=== PATIENT | male | born 1960 | race Caucasian/White ===

== ENCOUNTER 2017-09-11 08:34 | Outpatient (RCR) | payer OTHER | END 2017-09-18 | LOC: M CR 08:34 → M PR 09-16 09:58 | DX: Z51.89 Encounter for other specified aftercare (principal); Z94.2 Lung transplant status | CPT/HCPCS: G0424 ==

== ENCOUNTER 2017-09-19 08:48 | Outpatient (RCR) | payer OTHER | END 2017-10-16 | LOC: M PR 08:48 | DX: Z51.89 Encounter for other specified aftercare (principal); Z94.2 Lung transplant status | CPT/HCPCS: G0424 ==

== ENCOUNTER 2017-10-21 10:54 | Outpatient (RCR) | payer OTHER | END 2017-11-16 | LOC: M PR 10:54 | DX: Z51.89 Encounter for other specified aftercare (principal); Z94.2 Lung transplant status | CPT/HCPCS: G0424 ==

== ENCOUNTER 2017-11-18 13:08 | Outpatient (RCR) | payer OTHER | END 2017-12-16 | LOC: M PR 13:08 | DX: Z51.89 Encounter for other specified aftercare (principal); Z94.2 Lung transplant status | CPT/HCPCS: G0424 ==

== ENCOUNTER 2017-12-18 09:44 | Outpatient (RCR) | payer OTHER | END 2018-01-16 | LOC: M PR 09:44 | DX: Z51.89 Encounter for other specified aftercare (principal); Z94.2 Lung transplant status | CPT/HCPCS: G0424 ==

== ENCOUNTER 2018-01-01 14:14 | Outpatient (RCR) | payer OTHER | END 2018-01-16 | LOC: M PR 14:14 | DX: Z51.89 Encounter for other specified aftercare (principal); Z94.2 Lung transplant status | CPT/HCPCS: 93797 ==

== ENCOUNTER 2018-02-17 13:10 | Outpatient (RCR) | payer OTHER | END 2018-03-18 | LOC: M PR 13:10 | DX: Z51.89 Encounter for other specified aftercare (principal); Z94.2 Lung transplant status | CPT/HCPCS: 93797 ==

== ENCOUNTER 2018-04-20 01:59 | Emergency (ER) | payer OTHER ==
[2018-04-20 02:32] LABS: HEMOGLOBIN 7.7 g/dl (13.5-17.5); MEAN CORPUSCULAR HEMOGLOBIN 33.9 pg (27.0-33.0); MEAN CORPUSCULAR HGB CONC 32.1 g/dl (32.0-36.5); MEAN CORPUSCULAR VOLUME 105.7 fl (80.0-96.0); PLATELET COUNT, AUTOMATED 176 10^3/uL (150-450); RED BLOOD COUNT 2.27 10^6/uL (4.30-6.10); RED CELL DISTRIBUTION WIDTH 13.2 % (11.5-14.5); WHITE BLOOD COUNT 13.4 10^3/uL (4.0-10.0)
[2018-04-20 02:37] LABS: ADD MANUAL DIFFER YES; DIFF SLIDE NUMBER 66; POSITIVE MORPH POS FLAG
[2018-04-20] MEDS: ONDANSETRON 4MG/2ML VIAL (J2405) IV (02:37)
[2018-04-20] MEDS: fentaNYL 100 MCG/2 ML INJECTION (J3010) IV ×3 (02:37→04:45)
[2018-04-20] MEDS: NS 1,000 ML IV ×2 (02:40→04:45)
[2018-04-20 02:56] LABS: ALBUMIN 3.3 GM/DL (3.2-5.2); ALBUMIN/GLOBULIN RATIO 1.06 (1.00-1.93); ALKALINE PHOSPHATASE 67 U/L (45-117); ALT/SGPT 28 U/L (12-78); ANION GAP 9 MEQ/L (8-16); AST/SGOT 25 U/L (7-37); BILIRUBIN,DIRECT < 0.1 MG/DL (0.0-0.2); BILIRUBIN,TOTAL 0.2 MG/DL (0.2-1.0); BLOOD UREA NITROGEN 41 MG/DL (7-18); CALCIUM LEVEL 8.2 MG/DL (8.5-10.1); CARBON DIOXIDE LEVEL 25 MEQ/L (21-32); CHLORIDE LEVEL 110 MEQ/L (98-107); CK-MB VALUE MASS < 1.0 NG/ML (<3.6); CPK CREATINE PHOSPHOKINASE 39 U/L (39-308); GLOMERULAR FILTRATION RATE 29.9 (>56); GLUCOSE, FASTING 120 MG/DL (70-100); LIPASE 73 U/L (73-393); MB/CK RELATIVE INDEX 2.56 (< OR =4); POTASSIUM SERUM 4.5 MEQ/L (3.5-5.1); SODIUM LEVEL 144 MEQ/L (136-145); TOTAL PROTEIN 6.4 GM/DL (6.4-8.2); TROPONIN I < 0.02 NG/ML (< 0.10)
[2018-04-20 03:03] LABS: BASOPHILS 1 % (0-4); LYMPHOCYTES 8 % (16-52); MONOCYTES 4 % (0-8); NEUTROPHILS 87 % (35-75); PLATELET ESTIMATE NORMAL (NORMAL)
[2018-04-20 03:04] LABS: TEAR DROP CELLS 1+
[2018-04-20 05:01] LABS: BASO % 0.1 % (0.0-1.0); EOS % 0.2 % (0.0-3.0); IMMATURE GRANULOCYTE % 1.2 % (0-3.0); LYMPH # 0.5 10^3/uL (1.5-4.5); MEAN CORPUSCULAR HEMOGLOBIN 33.9 pg (27.0-33.0); MEAN CORPUSCULAR VOLUME 105.8 fl (80.0-96.0); MONO # 1.5 10^3/uL (0.0-0.8); MONO % 11.7 % (0.0-5.0); NEUTROPHILS # 10.7 10^3/uL (1.8-7.7); NEUTROPHILS % 82.8 % (36.0-66.0); PLATELET COUNT, AUTOMATED 121 10^3/uL (150-450); RED BLOOD COUNT 1.89 10^6/uL (4.30-6.10); RED CELL DISTRIBUTION WIDTH 13.1 % (11.5-14.5); WHITE BLOOD COUNT 12.9 10^3/uL (4.0-10.0)
[2018-04-20 05:04] LABS: HEMOGLOBIN 6.4 g/dl (13.5-17.5); POSITIVE MORPH POS FLAG
[2018-04-20 05:31] LABS: IMMEDIATE SPIN CROSSMATCH 1 4
[2018-04-20] MEDS: PROTAMINE SULF INJ 50 MG/5 ML VIAL (J2720) IV (05:48)
[2018-04-20] MEDS ORDERED: MORPHINE 4 MG/ML 1ML VIAL/SYRINGE (J2270) As Ordered (06:11)
[2018-04-20] MEDS: MORPHINE 4 MG/ML 1ML VIAL/SYRINGE (J2270) IV (06:35)
[2018-04-20] MEDS: HYDROMORPHONE HCL 0.5 MG/ 0.5 ML SYRINGE (J1170 PER 1) IV ×2 (07:12→07:53)
[2018-04-20] MEDS: TACROLIMUS 0.5 MG CAP PO ×2 (07:54)
== END 2018-04-20 08:00 | disposition short-term general hospital (02) ==
LOC: M ED 01:59
DX: J94.2 Hemothorax (principal); J84.10 Pulmonary fibrosis, unspecified; I95.9 Hypotension, unspecified
CPT/HCPCS: J2270

== ENCOUNTER 2018-08-06 08:36 | Outpatient (RCR) | payer OTHER ==
[~2018-08-06 08:36] MED LIST: ALBU17IN2 INH; ALBU83IN INH; AZIT-12 PO; BACT800T5 PO; CULT10CA2 PO; FLON1SPR; FOLI1TAB5 PO; IMUR50TA7 PO; LASI20TA PO; LIPI10TA PO; LOPR1TAB6 PO; LOVE0.6I2 SC; MAGN400T5 PO; MULT1TAB18 PO; NORC1TAB4 PO; PANT40TA3 PO; PRED10TA2 PO; TACR0.5C3 PO; TACR1CAP3 PO; TRAM50TA2 PO; TUMS500C PO; VALC450T PO; VITA200028 PO; XANA0.5T PO; ZOFR4TAB16 PO; [UNRECOGNIZED DRUG - CODE] PO; mag ox
[2018-08-06] MEDS ORDERED: COUM1TAB17 PO (08:58)
[2018-08-06] MEDS ORDERED: COUM7.5T PO (08:58)
== END 2018-08-18 ==
LOC: M PR 08:36
PROVIDERS: ATTEND Internal Medicine Pulmonary Disease
DX: J84.112 Idiopathic pulmonary fibrosis (principal)

== ENCOUNTER 2018-09-15 10:31 | Outpatient (RCR) | payer OTHER ==
[~2018-09-15 10:31] MED LIST changes: +COUM1TAB17 PO; +COUM7.5T PO; +FOLI1TAB11 PO; -FOLI1TAB5 PO; -LASI20TA PO; +LASI20TA3 PO
== END 2018-09-18 ==
LOC: M PR 10:31
PROVIDERS: ATTEND Internal Medicine Pulmonary Disease
DX: J84.112 Idiopathic pulmonary fibrosis (principal)
CPT/HCPCS: G0424 ×9

== ENCOUNTER 2018-10-15 15:49 | Outpatient (RCR) | payer OTHER | END 2018-10-16 | LOC: M PR 15:49 | PROVIDERS: ATTEND Internal Medicine Pulmonary Disease | DX: J84.112 Idiopathic pulmonary fibrosis (principal) | CPT/HCPCS: G0424 ×6 ==

== ENCOUNTER 2018-11-12 10:35 | Outpatient (RCR) | payer OTHER | END 2018-11-16 | LOC: M PR 10:35 | PROVIDERS: ATTEND Internal Medicine Pulmonary Disease | DX: J84.112 Idiopathic pulmonary fibrosis (principal) | CPT/HCPCS: G0424 ×7 ==

== ENCOUNTER 2018-12-11 13:51 | Outpatient (RCR) | payer OTHER ==
[~2018-12-11 13:51] MED LIST changes: +IMUR50TA10 PO; -IMUR50TA7 PO; -NORC1TAB4 PO; +NORC1TAB7 PO
== END 2018-12-16 ==
LOC: M PR 13:51
PROVIDERS: ATTEND Internal Medicine Pulmonary Disease
DX: J84.10 Pulmonary fibrosis, unspecified (principal)
CPT/HCPCS: G0424 ×5

== ENCOUNTER 2019-01-05 12:59 | Outpatient (RCR) | payer OTHER | END 2019-01-16 | LOC: M PR 12:59 | PROVIDERS: ATTEND Internal Medicine Pulmonary Disease | DX: Z51.89 Encounter for other specified aftercare (principal) | CPT/HCPCS: G0424 ×2 ==

== ENCOUNTER 2019-02-09 13:32 | Outpatient (RCR) | payer OTHER | END 2019-02-15 | LOC: M PR 13:32 | PROVIDERS: ATTEND Internal Medicine Pulmonary Disease | DX: J84.112 Idiopathic pulmonary fibrosis (principal) | CPT/HCPCS: G0424 ×4 ==

== ENCOUNTER → 2019-03-18 | Outpatient (RCR) | payer OTHER | LOC: M PR 03-04 10:16 | PROVIDERS: ATTEND Internal Medicine Pulmonary Disease | DX: J84.10 Pulmonary fibrosis, unspecified (principal) | CPT/HCPCS: G0424 ×2 ==

== ENCOUNTER 2019-04-23 09:44 | Outpatient (RCR) | payer OTHER ==
[~2019-04-23 09:44] MED LIST changes: -ALBU17IN2 INH; +PROV108A INH
== END 2019-05-18 ==
LOC: M PR 09:44
PROVIDERS: ATTEND Internal Medicine Pulmonary Disease
DX: J84.10 Pulmonary fibrosis, unspecified (principal)

== ENCOUNTER 2019-08-23 08:40 | Emergency (ER) | payer OTHER ==
[~2019-08-23] VITALS: Ht 182.9 cm; Wt 79.5 kg
[2019-08-23] MEDS ORDERED: ACET1TAB55 PO (08:57)
[2019-08-23] MEDS ORDERED: SING10TA32 PO (08:57)
[2019-08-23] MEDS ORDERED: WARF-21 PO (08:57)
[2019-08-23] MEDS ORDERED: SUMA25TA3 PO (08:57)
[2019-08-23] MEDS ORDERED: METO5TAB2 PO (08:57)
[2019-08-23 09:56] LABS: BASO % 0.3 % (0.0-1.0); EOS % 0.3 % (0.0-3.0); HEMATOCRIT 34.7 % (42.0-52.0); HEMOGLOBIN 11.6 g/dl (13.5-17.5); LYMPH # 0.4 10^3/uL (1.5-5.0); LYMPH % 11.7 % (24.0-44.0); MEAN CORPUSCULAR HEMOGLOBIN 33.1 pg (27.0-33.0); MEAN CORPUSCULAR HGB CONC 33.4 g/dl (32.0-36.5); MEAN CORPUSCULAR VOLUME 99.1 fl (80.0-96.0); MONO # 0.5 10^3/uL (0.0-0.8); MONO % 14.5 % (0.0-5.0); NEUTROPHILS # 2.4 10^3/uL (1.5-8.5); NEUTROPHILS % 72.6 % (36.0-66.0); PLATELET COUNT, AUTOMATED 122 10^3/uL (150-450); WHITE BLOOD COUNT 3.3 10^3/uL (4.0-10.0)
[2019-08-23 10:08] LABS: INR 2.8; PARTIAL THROMBOPLASTIN TIME 29.9 SECONDS (25.0-38.4); PROTHROMBIN TIME 29.4 SECONDS (11.8-14.0)
[2019-08-23 10:17] LABS: ALBUMIN 4.3 GM/DL (3.2-5.2); BILIRUBIN,DIRECT 0.2 MG/DL (0.0-0.2); BILIRUBIN,TOTAL 0.7 MG/DL (0.2-1.0); TOTAL PROTEIN 6.8 GM/DL (6.4-8.2)
[2019-08-23 10:25] LABS: CALCIUM LEVEL 8.9 MG/DL (8.5-10.1); CREATININE FOR GFR 2.06 MG/DL (0.70-1.30); GLOMERULAR FILTRATION RATE 35.4 (>56); POTASSIUM SERUM 3.7 MEQ/L (3.5-5.1)
[2019-08-23] MEDS ORDERED: ACETAMINOPHEN TAB 650MG DOSE (2X325MG) PO ONE (13:00)
[2019-08-23] MEDS ORDERED: ONDANSETRON 4MG/2ML VIAL (J2405) IV ONE (13:15)
[2019-08-23] MEDS ORDERED: ALPRAZolam 0.25 MG TAB PO ONE (13:45)
--- NOTE | 2019-08-23 13:49 | REP ---
CT ABDOMEN AND PELVIS WITHOUT CONTRAST: HISTORY: Vomiting. No comparison CT study. 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 The lung bases show mild linear fibrosis in the right lung base. No pleural effusion is seen. The patient appears to be status post Alfredo fundoplication. No hiatal hernia is seen. No adrenal lesion is seen. The liver and the spleen are normal in size homogeneous in texture. No abnormalities noted in the pancreas or within the gallbladder. Kidneys are morphologically intact. No abdominal wall defect is seen. Small and large bowel loops are normal in caliber. The appendix is surgically absent. Seminal vesicles and prostate are unremarkable. Urinary bladder is intact. IMPRESSION: No acute intra-abdominal abnormality. Electronically Signed by Nomi Mendoza MD 08/23/2019 02:01 P
[2019-08-23 16:25] VITALS: BP 155/85
== END 2019-08-23 16:31 | disposition home or self-care (01) ==
LOC: M ED 08:40
DX: R11.2 Nausea with vomiting, unspecified (principal); J84.112 Idiopathic pulmonary fibrosis; Z79.01 Long term (current) use of anticoagulants; Z79.51 Long term (current) use of inhaled steroids; Z79.52 Long term (current) use of systemic steroids; Z79.899 Other long term (current) drug therapy
CPT/HCPCS: 36415; 74176; 80048; 80076; 80197; 81001; 82150; 83605; 83690; 85025; 85610; 85730; 87040; 93041; 96374; 99285; J2405

== ENCOUNTER 2019-09-17 11:08 | Outpatient (RCR) | payer OTHER ==
[~2019-09-17 11:08] MED LIST changes: +ACET1TAB55 PO; +METO5TAB2 PO; +SING10TA32 PO; +SUMA25TA3 PO; +WARF-21 PO
== END 2019-09-18 ==
LOC: M PR 11:08
PROVIDERS: ATTEND Internal Medicine Pulmonary Disease
DX: Z51.89 Encounter for other specified aftercare (principal)
CPT/HCPCS: G0424 ×2

== ENCOUNTER 2019-10-14 14:01 | Outpatient (RCR) | payer OTHER ==
[2019-10-02 10:18] VITALS: BP 140/80
[2019-10-02 10:45] VITALS: BP 180/80
[2019-10-02 11:30] VITALS: BP 130/80
[2019-10-12 09:15] VITALS: BP 122/90
[2019-10-12 09:40] VITALS: BP 156/80
[2019-10-12 10:29] VITALS: BP 128/80
[~2019-10-14] VITALS: Ht 180.3 cm; Wt 80.0 kg
[2019-10-14 15:07] VITALS: BP_SYST 140; BP_SYST 158; BP_DIAS 84; BP_DIAS 86
[2019-10-14 15:08] VITALS: BP 112/78
== END 2019-10-17 ==
LOC: M PR 14:01
PROVIDERS: ATTEND Internal Medicine Pulmonary Disease
DX: Z51.89 Encounter for other specified aftercare (principal); J84.112 Idiopathic pulmonary fibrosis
CPT/HCPCS: G0424 ×5

== ENCOUNTER → 2020-08-05 | Outpatient (CLI) | payer MEDICARE, OTHER, SELFPAY ==
[~2020-08-05] MED LIST changes: -COUM7.5T PO; +COUM7.5T6 PO; +PANT40TA29 PO; -PANT40TA3 PO
== END ==
LOC: M LABSMTC 12:13
PROVIDERS: ATTEND Family Medicine
DX: Z20.828 Contact with and (suspected) exposure to other viral communicable diseases (principal)

== ENCOUNTER → 2020-08-24 | Outpatient (CLI) | payer SELFPAY | LOC: M LABSMTC 14:20 | PROVIDERS: ATTEND Pediatrics | DX: Z20.822 Contact with and (suspected) exposure to COVID-19 (principal) ==

== ENCOUNTER → 2020-09-06 | Outpatient (CLI) | payer SELFPAY | LOC: M LABSMTC 11:56 | PROVIDERS: ATTEND Pediatrics | DX: Z20.822 Contact with and (suspected) exposure to COVID-19 (principal) ==

== ENCOUNTER → 2021-06-19 | Outpatient (CLI) | payer OTHER ==
[~2021-06-19] MED LIST changes: +CHLO500TA PO; +FREM225A; +WARF-23
== END ==
LOC: M LABSMTC 09:39
PROVIDERS: ATTEND Anesthesiology
DX: Z01.818 Encounter for other preprocedural examination (principal); Z11.52 Encounter for screening for COVID-19

== ENCOUNTER 2021-06-23 06:27 | Day surgery (SDC) | payer OTHER ==
[~2021-06-23] VITALS: Ht 180.3 cm; Wt 92.0 kg
[~2021-06-23 06:27] MED LIST changes: +NS 1,000 ML IV ONE
[2021-06-23] MEDS ORDERED: SIMETHICONE 40MG/0.6ML DROPS 30ML As Ordered ONE (07:11)
[2021-06-23] MEDS ORDERED: propofoL 200 MG/20 ML VIAL As Ordered ONE ×2 (07:11→08:07)
[2021-06-23] MEDS ORDERED: LIDOCAINE 2% 100MG/5ML SDV (FOR ANES.) As Ordered ONE (07:11)
--- NOTE | 2021-06-23 08:31 | ROOR ---
Patient Name: Lili Lowry Procedure Date: 06/23/2021 7:41 AM Date of : 1960 Age: 61 Room: [facility] Gender: Male Note Status: Finalized Procedure: Colonoscopy Indications: Screening for colorectal malignant neoplasm Providers: Deepak Christensen MD Referring MD: Sylvester Stoddard Requesting Provider: Medicines: Monitored Anesthesia Care Complications: No immediate complications. Procedure: Pre-Anesthesia Assessment: - Prior to the procedure, a History and Physical was performed, and patient medications and allergies were reviewed. The patient is competent. The risks and benefits of the procedure and the sedation options and risks were discussed with the patient. All questions were answered and informed consent was obtained. Patient identification and proposed procedure were verified by the physician, the nurse and the anesthesiologist in the endoscopy suite. Mental Status Examination: alert and oriented. Airway Examination: normal oropharyngeal airway and neck mobility. Respiratory Examination: clear to auscultation. CV Examination: normal. Prophylactic Antibiotics: The patient does not require prophylactic antibiotics. Prior Anticoagulants: The patient has taken Coumadin (warfarin), last dose was 5 days prior to procedure. ASA Grade Assessment: III - A patient with severe systemic disease. After reviewing the risks and benefits, the patient was deemed in satisfactory condition to undergo the procedure. The anesthesia plan was to use monitored anesthesia care (MAC). Immediately prior to administration of medications, the patient was re-assessed for adequacy to receive sedatives. The heart rate, respiratory rate, oxygen saturations, blood pressure, adequacy of pulmonary ventilation, and response to care were monitored throughout the procedure. The physical status of the patient was re-assessed after the procedure. The Colonoscope was introduced through the anus and advanced to the cecum, identified by appendiceal orifice and ileocecal valve. The colonoscopy was somewhat difficult due to inability to hold air [Solution]. The quality of the bowel preparation was good. Findings: Hemorrhoids were found on perianal exam. Two pedunculated polyps were found in the ascending colon and ileocecal valve. The polyps were 1 to 7 mm in size. These polyps were removed with a hot snare. Resection and retrieval were complete. Estimated blood loss: none. Three semi-pedunculated polyps were found in the transverse colon. The polyps were 1 to 5 mm in size. These polyps were removed with a hot snare. Resection and retrieval were complete. Estimated blood loss was minimal. A 10 mm polyp was found in the sigmoid colon. The polyp was pedunculated. The polyp was removed with a hot snare. Resection and retrieval were complete. Estimated blood loss: none. Non-bleeding internal hemorrhoids were found during retroflexion. The hemorrhoids were small. Impression: - Hemorrhoids found on perianal exam. - Two 1 to 7 mm polyps in the ascending colon and at the ileocecal valve, removed with a hot snare. Resected and retrieved. - Three 1 to 5 mm polyps in the transverse colon, removed with a hot snare. Resected and retrieved. - One 10 mm polyp in the sigmoid colon, removed with a hot snare. Resected and retrieved. - Non-bleeding internal hemorrhoids. Recommendation: - Repeat colonoscopy in 1 year for surveillance. Procedure Code(s): --- Professional --- 67388, Colonoscopy, flexible; with removal of tumor(s), polyp(s), or other lesion(s) by snare technique Diagnosis Code(s): --- Professional --- K63.5, Polyp of colon Z12.11, Encounter for screening for malignant neoplasm of colon K64.8, Other hemorrhoids CPT copyright 2019 [employer] [place] [employer]. All rights reserved. The codes documented in this report are preliminary and upon teller head review may be revised to meet current compliance requirements. Deepak Christensen MD Deepak Christensen MD 06/23/2021 8:30:47 AM Electronically signed by Deepak Christensen MD Number of Addenda: 0 Note Initiated On: 06/23/2021 7:41 AM Estimated Blood Loss: Estimated blood loss was minimal.
[2021-06-23 08:40] VITALS: BP 133/90
== END 2021-06-23 08:42 | disposition home or self-care (01) ==
LOC: M OPP 06:27
PROVIDERS: ATTEND Surgery
DX: Z12.11 Encounter for screening for malignant neoplasm of colon (principal); D12.6 Benign neoplasm of colon, unspecified; K64.8 Other hemorrhoids; J84.10 Pulmonary fibrosis, unspecified; Z94.2 Lung transplant status; Z79.891 Long term (current) use of opiate analgesic; Z79.899 Other long term (current) drug therapy

== ENCOUNTER → 2021-08-18 | Outpatient (REF) | payer MEDICARE, OTHER ==
[~2021-08-18] MED LIST changes: -NS 1,000 ML IV ONE
== END ==
LOC: M LAB REF 13:12
PROVIDERS: ATTEND Physician Assistant Medical
DX: R50.9 Fever, unspecified (principal)

== ENCOUNTER 2022-06-03 10:24 | Emergency (ER) | payer MEDICARE, OTHER ==
[~2022-06-03] VITALS: Ht 180.3 cm; Wt 93.2 kg
[~2022-06-03 10:24] MED LIST changes: +ALBU2.5V10 INH; +ALBU6.7H6 INH; -ALBU83IN INH; -FREM225A; +FREM225A IM; -PROV108A INH; -WARF-23; +WARF-23 PO
[2022-06-03] MEDS ORDERED: ENOX40IN3 SC (10:44)
[2022-06-03] MEDS ORDERED: MAGN400T35 PO (10:44)
[2022-06-03] MEDS ORDERED: OXYC-517 PO (10:44)
[2022-06-03 11:49] LABS: BASO % 0.3 % (0.0-1.0); EOS % 0.4 % (0.0-3.0); HEMATOCRIT 22.2 % (42.0-52.0); HEMOGLOBIN 7.3 g/dl (13.5-17.5); LYMPH # 0.3 10^3/uL (1.5-5.0); LYMPH % 3.2 % (24.0-44.0); MEAN CORPUSCULAR HEMOGLOBIN 35.1 pg (27.0-33.0); MEAN CORPUSCULAR HGB CONC 32.9 g/dl (32.0-36.5); MEAN CORPUSCULAR VOLUME 106.7 fl (80.0-96.0); MONO # 0.6 10^3/uL (0.0-0.8); NEUTROPHILS # 9.2 10^3/uL (1.5-8.5); NEUTROPHILS % 88.9 % (36.0-66.0); PLATELET COUNT, AUTOMATED 316 10^3/uL (150-450); RED BLOOD COUNT 2.08 10^6/uL (4.30-6.10); WHITE BLOOD COUNT 10.4 10^3/uL (4.0-10.0)
[2022-06-03 12:06] LABS: INR 4.02; PROTHROMBIN TIME 39.7 SECONDS (12.5-14.5)
[2022-06-03 12:08] LABS: PARTIAL THROMBOPLASTIN TIME 104.5 SECONDS (24.8-34.2)
[2022-06-03 12:31] LABS: ALBUMIN 2.9 GM/DL (3.2-5.2); BILIRUBIN,DIRECT 0.2 MG/DL (0.0-0.2); BILIRUBIN,TOTAL 0.4 MG/DL (0.2-1.0); CALCIUM LEVEL 8.3 MG/DL (8.8-10.2); CREATININE FOR GFR 1.92 MG/DL (0.70-1.30); POTASSIUM SERUM 4.4 MEQ/L (3.5-5.1); TOTAL PROTEIN 5.5 GM/DL (6.4-8.2)
[2022-06-03] MEDS: MORPHINE 2 MG/ML 1ML VIAL IV PRN ×2 (12:51→15:00)
[2022-06-03 13:19] LABS: C REACTIVE PROTEIN QUANTITATIV 6.89 MG/DL (0.00-0.30)
[2022-06-03 13:38] LABS: RSV AMPLIFICATION NEGATIVE (NEGATIVE)
[2022-06-03 13:47] LABS: ERYTHROCYTE SEDIMENTATION RATE 90 mm/hr (0-20)
[2022-06-03] MEDS ORDERED: PHYTONADIONE 5 MG TAB PO ONE (15:15)
[2022-06-03] MEDS ORDERED: VANCOMYCIN HCL 2,000 MG in D5W 500 ML IV ONE (15:15)
[2022-06-03] MEDS ORDERED: PIPERACILLIN/TAZOBACTAM SOD 4.5 GM in D5W MINI-BAG PLUS 50 ML IV ONE (15:15)
[2022-06-03 15:18] VITALS: BP 132/64
[2022-06-03] MEDS ORDERED: MORPHINE 4 MG/ML 1ML VIAL/SYRINGE IV ONE ×2 (15:40→22:00)
[2022-06-03] MEDS ORDERED: DILUENT IV ONE (16:00)
[2022-06-03] MEDS ORDERED: METOPROLOL TART 25 MG TABLET PO SCH ×2 (16:00→21:00)
[2022-06-03] MEDS ORDERED: VANCOMYCIN HCL 1,000 MG, VIAL MATE ADAPTER 1 EACH in NS 250 ML IV ONE ×2 (16:00→17:00)
[2022-06-03] MEDS ORDERED: PROTHROMBIN COMPLEX CONCEN IV ONE (16:00)
[2022-06-03] MEDS ORDERED: GLUCAGON INJ 1MG VIAL SC PRN (16:10)
[2022-06-03] MEDS ORDERED: GLUCOSE 4GM CHEW TABLET PO PRN (16:10)
[2022-06-03] MEDS ORDERED: DEXTROSE 50% 50 ML SYRINGE IV PRN (16:10)
[2022-06-03] MEDS ORDERED: ONDANSETRON 4MG 2ML VIAL IV PRN (16:20)
[2022-06-03] MEDS ORDERED: ACETAMINOPHEN TAB 650MG DOSE (2X325MG) PO PRN (16:20)
[2022-06-03] MEDS ORDERED: SENOKOT S TAB PO PRN (16:20)
[2022-06-03] MEDS ORDERED: MIRALAX *UNIT DOSE* 17GM PACKET PO PRN (16:20)
[2022-06-03] MEDS ORDERED: BISACODYL 5 MG TAB PO PRN (16:20)
[2022-06-03] MEDS ORDERED: oxyCODONE 5MG TAB PO PRN ×2 (16:50)
[2022-06-03] MEDS ORDERED: INSULIN LISPRO (NovoLOG) PER UNIT SC SCH ×2 (17:30→21:00)
[2022-06-03] MEDS ORDERED: ALPR0.25 PO (17:42)
[2022-06-03] MEDS ORDERED: METO25TA4 PO (17:42)
[2022-06-03] MEDS ORDERED: PRED5TA PO (17:48)
[2022-06-03] MEDS ORDERED: ONDA-83 PO (17:48)
[2022-06-03] MEDS ORDERED: TACR0.5C3 PO (17:51)
[2022-06-03] MEDS ORDERED: VITMTA PO (17:54)
[2022-06-03] MEDS ORDERED: MED REC COMMENT (17:54)
[2022-06-03] MEDS ORDERED: RA M10TA PO (17:54)
[2022-06-03] MEDS ORDERED: HOME MED LIST COMPLETE! XX SCH (17:55)
[2022-06-03] MEDS ORDERED: FLUTICASONE PROP 0.05% NASAL SPRAY 16 GM (FLONASE) PRN (18:00)
[2022-06-03] MEDS ORDERED: ALPRAZolam 0.25 MG TAB PO PRN (18:00)
[2022-06-03 18:05] VITALS: BP 132/70
[2022-06-03] MEDS: oxyCODONE 5MG TAB PO SCH ×2 (18:12→20:54)
[2022-06-03 18:22] VITALS: BP 133/68
[2022-06-03] MEDS: ACETAMINOPHEN 325 MG TAB PO SCH ×2 (18:37→21:59)
[2022-06-03] MEDS: traMADol 50 MG TAB PO PRN ×2 (18:55→21:58)
[2022-06-03 19:29] VITALS: BP 141/68
[2022-06-03 20:30] VITALS: BP 135/63
[2022-06-03 21:00] VITALS: BP 134/67
[2022-06-03] MEDS ORDERED: PANTOPRAZOLE 40MG TAB (PROTONIX) PO SCH (21:00)
[2022-06-03] MEDS ORDERED: TACROLIMUS 0.5 MG CAP PO SCH (21:00)
[2022-06-03] MEDS ORDERED: MONTELUKAST 10 MG TAB PO SCH (21:00)
[2022-06-03] MEDS ORDERED: CALCIUM CARBONATE 500 MG CHEW U/D PO SCH (21:00)
[2022-06-03] MEDS ORDERED: ATORVASTATIN 10 MG TAB PO SCH (21:00)
[2022-06-03] MEDS ORDERED: TACROLIMUS 1 MG CAP (J7507) PO SCH (21:00)
[2022-06-03] MEDS ORDERED: MAGNESIUM OXIDE 400MG TAB (MAG-OX) PO SCH (21:00)
[2022-06-03] MEDS ORDERED: RAMELTEON 8 MG TAB (ROZEREM) PO SCH (21:00)
[2022-06-03 21:55] LABS: HEMOGLOBIN 8.1 g/dl (13.5-17.5)
[2022-06-03] MEDS ORDERED: PIPERACILLIN/TAZOBACTAM SOD 3.375 GM in D5W MINI-BAG PLUS 50 ML IV SCH (22:00)
[2022-06-04] MEDS ORDERED: VANCOMYCIN HCL 1,000 MG, VIAL MATE ADAPTER 1 EACH in NS 250 ML IV SCH (08:00)
[2022-06-04] MEDS ORDERED: ValGANciclovir HYDROCHLORIDE 450MG TABLET PO SCH (09:00)
[2022-06-04] MEDS ORDERED: FOLIC ACID 1MG TAB PO SCH (09:00)
[2022-06-04] MEDS ORDERED: BACTRIM 160MG/800MG DS TAB PO SCH (09:00)
[2022-06-04] MEDS ORDERED: AZITHROMYCIN 250MG TABLET PO SCH (09:00)
[2022-06-04] MEDS ORDERED: MULTIVITAMINS/MINERALS THERAP 1 TAB PO SCH (09:00)
[2022-06-04] MEDS ORDERED: predniSONE 5 MG TAB PO SCH (09:00)
[2022-06-05 10:09] LABS: DRVV SCREEN 87.6 SEC
[2022-06-05 10:10] LABS: PTT LUPUS TYPE ANTICOAG SCREEN 2.3 (0-1.2)
[2022-06-05 10:18] LABS: DRVV CONFIRM 74.1 SEC
[2022-06-05 10:25] LABS: NORMALIZED RATIO 1.15 (0.00-1.20)
[2022-06-13 11:08] LABS: ANTI THROMBIN 3 ANTIGEN IMMUNO 94 % (72-124); ANTI THROMBIN 3 FUNCT ACTIVITY 132 % (75-135); CARDIOLIPIN IGA ANTIBODY <9 APL U/mL (0-11); CARDIOLIPIN IGG ANTIBODY <9 GPL U/mL (0-14); CARDIOLIPIN IGM ANTIBODY <9 MPL U/mL (0-12); PHOSPHOLIPIDS LEVEL 162 mg/dL (127-261); PROTEIN C FUNCTIONAL ACTIVITY 67 % (73-180); PROTEIN S FUNCTIONAL ACTIVITY 16 % (63-140)
== END 2022-06-03 22:08 | disposition short-term general hospital (02) ==
LOC: EDBD 10:24 → M ED 10:24
DX: S70.12XA Contusion of left thigh, initial encounter (principal); D64.9 Anemia, unspecified; R00.0 Tachycardia, unspecified; E11.9 Type 2 diabetes mellitus without complications; I10 Essential (primary) hypertension; Z86.718 Personal history of other venous thrombosis and embolism; Z96.642 Presence of left artificial hip joint; Z79.02 Long term (current) use of antithrombotics/antiplatelets; Z79.83 Long term (current) use of bisphosphonates; Z79.811 Long term (current) use of aromatase inhibitors; Z79.899 Other long term (current) drug therapy; Y92.9 Unspecified place or not applicable; Y93.9 Activity, unspecified
CPT/HCPCS: 36430; 71045; 76882; 80048; 80076; 81240; 81241; 83605; 84311; 85014; 85018; 85025; 85300; 85301; 85303; 85305; 85610; 85613; 85652; 85730; 86140; 86147; 86850; 86900; 86901; 86920; 87040; 87631; 93005; 93041; 93971; 94760; 96360; 96366; 96375; 99285; J1815; J2270; J2405; J2543; J3370; J7168; J7507; P9016

== ENCOUNTER 2023-09-11 09:04 | Day surgery (SDC) | payer OTHER ==
[~2023-09-11] VITALS: Ht 180.3 cm; Wt 92.0 kg
[~2023-09-11 09:04] MED LIST changes: +ALPR0.25 PO; +ENOX40IN3 SC; +MAGN400T35 PO; +MED REC COMMENT; +METO25TA4 PO; +MONT-5 PO; +NS 1,000 ML IV ONE; +ONDA-83 PO; +OXYC-517 PO; +PRED5TA PO; +RA M10TA PO; -SING10TA32 PO; +VITMTA PO; +WARF-18 PO
[2023-09-11] MEDS ORDERED: LIDOCAINE 2% 100MG/5ML SDV (FOR ANES.) As Ordered ONE (09:45)
[2023-09-11] MEDS ORDERED: propofoL 200 MG/20 ML VIAL As Ordered ONE ×2 (09:45→11:59)
[2023-09-11 12:10] VITALS: TEMP 96.8
[2023-09-11 12:30] VITALS: BP 126/73; O2SAT 98
== END 2023-09-11 12:35 | disposition home or self-care (01) ==
LOC: M OPP 09:04
PROVIDERS: ATTEND Surgery
DX: Z12.11 Encounter for screening for malignant neoplasm of colon (principal); Z86.010 Personal history of colon polyps; D12.6 Benign neoplasm of colon, unspecified; K64.4 Residual hemorrhoidal skin tags; K64.8 Other hemorrhoids; K57.30 Diverticulosis of large intestine without perforation or abscess without bleeding; I48.91 Unspecified atrial fibrillation; Z87.891 Personal history of nicotine dependence; Z79.01 Long term (current) use of anticoagulants; Z79.02 Long term (current) use of antithrombotics/antiplatelets; Z79.2 Long term (current) use of antibiotics; Z79.51 Long term (current) use of inhaled steroids; Z79.52 Long term (current) use of systemic steroids; Z79.621 Long term (current) use of calcineurin inhibitor; Z79.624 Long term (current) use of inhibitors of nucleotide synthesis; Z79.891 Long term (current) use of opiate analgesic; Z79.899 Other long term (current) drug therapy

== ENCOUNTER → 2024-02-04 | Outpatient (REF) | payer OTHER ==
[~2024-02-04] MED LIST changes: -NS 1,000 ML IV ONE
== END ==
LOC: M SFHCDERM 10:29
PROVIDERS: ATTEND Dermatology
DX: C44.329 Squamous cell carcinoma of skin of other parts of face (principal)

== ENCOUNTER → 2024-02-12 | Outpatient (REF) | payer MEDICARE, OTHER | LOC: M LAB REF 16:07 | PROVIDERS: ATTEND Physician Assistant Medical | DX: B34.9 Viral infection, unspecified (principal) ==

== ENCOUNTER → 2024-03-20 | Outpatient (CLI) | payer MEDICARE, OTHER | LOC: M ONCR 10:29 | PROVIDERS: ATTEND General Practice | DX: C44.329 Squamous cell carcinoma of skin of other parts of face (principal); C44.229 Squamous cell carcinoma of skin of left ear and external auricular canal; Z94.2 Lung transplant status; Z91.82 Personal history of military deployment; Z77.29 Contact with and (suspected) exposure to other hazardous substances; Z87.891 Personal history of nicotine dependence; Z79.01 Long term (current) use of anticoagulants; Z79.52 Long term (current) use of systemic steroids; Z79.899 Other long term (current) drug therapy; Z79.620 Long term (current) use of immunosuppressive biologic; Z98.890 Other specified postprocedural states ==

== ENCOUNTER 2024-04-14 10:12 | Outpatient (RCR) | payer OTHER | END 2024-04-18 | LOC: M ONCR 10:12 | PROVIDERS: ATTEND General Practice | DX: Z51.0 Encounter for antineoplastic radiation therapy (principal); C44.320 Squamous cell carcinoma of skin of unspecified parts of face ==

== ENCOUNTER → 2024-05-18 | Outpatient (RCR) | payer OTHER | LOC: M ONCR 04-28 14:32 | PROVIDERS: ATTEND General Practice | DX: Z51.0 Encounter for antineoplastic radiation therapy (principal); C44.320 Squamous cell carcinoma of skin of unspecified parts of face ==

== ENCOUNTER 2024-05-25 09:05 | Outpatient (RCR) | payer OTHER | END 2024-06-18 | LOC: M ONCR 09:05 | PROVIDERS: ATTEND General Practice | DX: Z51.0 Encounter for antineoplastic radiation therapy (principal); C44.320 Squamous cell carcinoma of skin of unspecified parts of face ==

== ENCOUNTER → 2024-09-23 | Outpatient (REF) | payer OTHER | LOC: M SFHCDERM 17:21 | PROVIDERS: ATTEND Physician Assistant | DX: C44.509 Unspecified malignant neoplasm of skin of other part of trunk (principal) ==

== ENCOUNTER → 2024-11-12 | Outpatient (REF) | payer OTHER | LOC: M SFHCDERM 15:31 | PROVIDERS: ATTEND Dermatology | DX: C44.229 Squamous cell carcinoma of skin of left ear and external auricular canal (principal) ==

== ENCOUNTER → 2024-11-19 | Outpatient (REF) | payer OTHER | LOC: M LAB REF 13:26 | PROVIDERS: ATTEND Surgery | DX: C44.529 Squamous cell carcinoma of skin of other part of trunk (principal) ==

== ENCOUNTER → 2024-12-29 | Outpatient (REF) | payer OTHER | LOC: M LAB REF 17:19 | PROVIDERS: ATTEND Surgery | DX: C44.529 Squamous cell carcinoma of skin of other part of trunk (principal) ==

== ENCOUNTER → 2025-06-08 | Outpatient (REF) | payer OTHER | LOC: M SFHCDERM 17:50 | PROVIDERS: ATTEND Dermatology | DX: D48.9 Neoplasm of uncertain behavior, unspecified (principal) ==

== ENCOUNTER → 2025-07-19 | Outpatient (CLI) | payer OTHER, MEDICARE ==
[~2025-07-19] MED LIST changes: +MELA10TA22 PO; -RA M10TA PO; -VALC450T PO; +VALG450T18 PO
== END ==
LOC: M PLARAD 13:27
PROVIDERS: ATTEND Dermatology
DX: C44.92 Squamous cell carcinoma of skin, unspecified (principal)
CPT/HCPCS: 78815; A9552